=== PATIENT | female | born 1935 | race Caucasian/White ===

== ENCOUNTER → 2017-09-09 | Outpatient (CLI) | payer OTHER ==
[~2017-09-09] MED LIST: FURO40TA PO; GARL3CAP PO; KLOR8TAB PO; POTA10TA2 PO
== END ==
LOC: CPRE 08:22
PROVIDERS: ATTEND Surgery
DX: Z01.812 Encounter for preprocedural laboratory examination (principal)

== ENCOUNTER 2017-09-10 05:31 | Inpatient (IN) | payer OTHER, MEDICARE ==
[~2017-09-10] VITALS: Ht 152.4 cm; Wt 70.9 kg
[~2017-09-10 05:31] MED LIST changes: -POTA10TA2 PO
[2017-09-10] MEDS ORDERED: CHLORHEXIDINE GLUCONATE 2 % 1 PACK (2 CLOTHS) TOPICAL PRN (06:15)
[2017-09-10] MEDS ORDERED: METOPROLOL TARTRATE 25 MG TAB PO PRN (06:15)
[2017-09-10] MEDS ORDERED: VANCOMYCIN 1000 MG/NS 250 ML (for <70 kg) IV SCH ×2 (06:15)
[2017-09-10] MEDS ORDERED: SODIUM CHLORID 0.9% 500 ML IV PRN (06:15)
[2017-09-10] MEDS ORDERED: POVIDONE IODINE 5% (ANTISEPSIS KIT) 4 APPLICATIONS EACH NARE PRN (06:15)
[2017-09-10] MEDS ORDERED: CHLORHEXIDINE GLUCONATE 4% SOLN 120 ML BTL TOPICAL SCH (06:15)
[2017-09-10] MEDS ORDERED: LACTATED RINGER'S 1000 ML IV PRN (06:15)
[2017-09-10] MEDS ORDERED: CLINDAMYCIN 900 MG/NS 100 ML IV SCH ×2 (06:15)
[2017-09-10] MEDS ORDERED: SODIUM CHLORIDE 0.9% INJ 100 ML ONE (06:37)
--- NOTE | 2017-09-10 07:14 | MH ---
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 ADMISSION HISTORY AND PHYSICAL This pleasant 82-year female is being admitted today for reverse shoulder arthroplasty due to severe arthritic degeneration with rotator cuff incompetence right shoulder. OTHER PAST HISTORY She has a history of: 1. Hypertension 2. Heart disease CURRENT MEDICATIONS Her current medications include: 1. Lisinopril 2. Lasix PAST SURGERIES 1. Cholecystectomy 2. Bilateral total knee arthroplasties REVIEW OF SYSTEMS Noncontributory FAMILY HISTORY Noncontributory SOCIAL HISTORY She does not smoke or drink. ALLERGIES SHE IS ALLERGIC TO KEFLEX. PHYSICAL EXAMINATION We find an 82-year female well-developed, well-nourished oriented x3 complaining of pain in her right shoulder. VITAL SIGNS: Blood pressure 134/82, pulse 69 and regular, respirations 18, temperature 97.7, pulse oximetry 97% on room air. HEENT: Eyes PERRL, EOMI. Ears, nose, mouth clear. NECK: Supple. LUNGS: Clear. HEART: Regular rate. ABDOMEN: Soft. Positive bowel sounds, nontender. EXTREMITIES: Reveal the right shoulder to have some limitation of motion. Neurovascularly intact to her fingers. 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 PLAN Admission for a reverse right shoulder arthroplasty today. The patient given a prescription for postoperative pain control in the office and plans on going home after surgical stay in the hospital. MD MATTIE Abernathy/JONAH /1:15 PM /7:07 AM
[2017-09-10] MEDS ORDERED: THROMBIN (TOPICAL) 20,000 UNIT SPRAY KIT ONE (07:18)
[2017-09-10] MEDS ORDERED: ROPIVACAINE 0.5% PF INJ 30 ML VIAL ONE (07:39)
[2017-09-10] MEDS: LACTATED RINGER'S 1000 ML INJ 1,000 ML IV SCH ×2 (07:57→20:27)
[2017-09-10] MEDS ORDERED: BISACODYL 10 MG SUPP RECTAL PRN (08:00)
[2017-09-10] MEDS ORDERED: EXPAREL PERI-ARTICULAR INJECTION (TOTAL VOL. 60 ML) P-ARTICULR SCH ×2 (08:00)
[2017-09-10] MEDS ORDERED: TEMAZEPAM 15 MG CAP PO PRN (08:00)
[2017-09-10] MEDS ORDERED: TRANEXAMIC ACID INJ 0 MG in SODIUM CHLORIDE 0.9% INJ 100 ML IV SCH (08:00)
[2017-09-10] MEDS ORDERED: TRANEXAMIC ACID IV SCH ×2 (08:00→11:00)
[2017-09-10] MEDS ORDERED: MAGNESIUM HYDROXIDE SUSP 30 ML CUP PO PRN (08:00)
[2017-09-10] MEDS ORDERED: Post-op Orders (for Pharmacy) XX ONE (08:00)
[2017-09-10] MEDS ORDERED: NALOXONE HCL 0.4 MG/ML AMP IV PUSH PRN (08:00)
[2017-09-10] MEDS ORDERED: MORPHINE SULFATE 8 MG/ML INJ IV PUSH PRN (08:00)
[2017-09-10] MEDS ORDERED: ONDANSETRON HCL 4 MG/2 ML VIAL IVP PRN (08:00)
[2017-09-10] MEDS ORDERED: SODIUM CHLORIDE 0.9% IV SCH ×2 (08:00→11:00)
[2017-09-10] MEDS ORDERED: MISCELLANEOUS NURSING INFORMATION XX PRN (08:00)
[2017-09-10] MEDS ORDERED: oxyCODONE/ACETAMINOPHEN 5 MG/325 MG TAB PO PRN ×2 (08:00)
--- NOTE | 2017-09-10 08:01 | HHI.FF ---
Face to Face Verification Diagnosis: (1) Status post reverse arthroplasty of right shoulder Occupational Therapy Right UE Range of Motion: Passive ROM Nursing RN: 3 days/week x 2 weeks Nursing: Dressing changes I have seen patient Zelda Vyas on 09/10/17. My clinical findings support the need for the requested home health care services because: Limited ability to care for self High risk of falls I certify that my clinical findings support that this patient is homebound because: Post-op weakness Unsteady gait/balance Christian Hoffman MD Sep 10, 2017 08:01
[2017-09-10] MEDS ORDERED: GENTAMICIN SULFATE 80 MG/2 ML VIAL ONE (08:20)
[2017-09-10] MEDS ORDERED: PHENYLEPHRINE HCL 10 MG/ML VIAL IV ONE (12:00)
[2017-09-10] MEDS ORDERED: NEOSTIGMINE 5 MG/5 ML SYRINGE IV PUSH ONE (12:00)
[2017-09-10] MEDS ORDERED: ONDANSETRON HCL 4 MG/2 ML VIAL IV ONE (12:00)
[2017-09-10] MEDS ORDERED: LIDOCAINE HCL 1% PF 5 ML SYRINGE OTHER ONE (12:00)
[2017-09-10] MEDS ORDERED: PROPOFOL 200 MG/20 ML AMP IV ONE (12:00)
[2017-09-10] MEDS ORDERED: ePHEDrine/NS 25 MG/5 ML SYRINGE IV ONE (12:00)
[2017-09-10] MEDS ORDERED: DEXAMETHASONE SOD PHOS 4 MG/ML VIAL IV ONE (12:00)
[2017-09-10] MEDS ORDERED: PHENYLEPH/NS 1000 MCG/10 ML SYR IV ONE (12:00)
[2017-09-10] MEDS ORDERED: ROCURONIUM INJ 50 MG/5 ML SYRINGE IV PUSH ONE (12:00)
[2017-09-10] MEDS ORDERED: GLYCOPYRROLATE 1 MG/5 ML SYRINGE IV PUSH ONE (12:00)
--- NOTE | 2017-09-10 12:24 | HHI.PR ---
Immediate Post Op Note Procedure Date: Sep 10, 2017 Pre Op Diagnosis: severe arthritic degeneration with rotator cuff incompetence right shoulder. Post Op Diagnosis: severe arthritic degeneration with rotator cuff incompetence right shoulder. Surgeon: Tony Hoffman MD Elevating Grader Operator(s): Jyoti SHINE Procedure: Right Reverse Total Shoulder Arthroplasty Complications: none Specimen(s) removed: none Estimated blood loss: 300cc Anesthesia: General Drains: None IVF Urinary Output (mLs): 0 (no cazares placed) Tourniquet time (min at mmHg) none Patient to: PACU Patient Condition: Good Implant/Devices: SEE IMPLANT LOG (if applicable) Date/Time of Procedure: SEE SURGICAL CARE RECORD Jyoti Magaña Sep 10, 2017 12:24
[2017-09-10 12:51] LABS: HEMATOCRIT 32.3 % (35.0-46.0); HEMOGLOBIN 10.7 GM/DL (11.6-15.3)
[2017-09-10] MEDS ORDERED: NS IV SCH (13:00)
[2017-09-10] MEDS ORDERED: CLINDAMYCIN IV SCH (13:00)
[2017-09-10] MEDS: POTASSIUM CHLORIDE 8 MEQ CONTROLLED RELEASE TAB PO SCH (14:05)
[2017-09-10] MEDS: FUROSEMIDE 40 MG TAB PO SCH (14:05)
--- NOTE | 2017-09-10 14:15 | RADRPT ---
EXAM DATE/TIME: 09/10/2017 13:53 [facility] COMPARISON: No previous studies available for comparison. INDICATIONS : Post op left shoulder surgery. MEDICAL HISTORY : Hypertension. TIA. Arthritis. SURGICAL HISTORY : Cholecystectomy. ENCOUNTER: Initial ACUITY: 1 day PAIN SCORE: 3/10 LOCATION: Left shoulder. FINDINGS: AP and Y. views of the left shoulder were obtained and demonstrate that the patient is status post le ft shoulder arthroplasty. The humeral and glenoid components are intact. There is mild osteopenia. Th ere is soft tissue swelling and gas in the adjacent soft tissues. CONCLUSION: Expected postoperative changes status post left shoulder arthroplasty. Alexey Murphy MD on September 10, 2017 at 14:11 Board Certified Radiologist. This report was verified electronically.
[2017-09-10] MEDS ORDERED: DO NOT ADM ANY ANTICOAGULANT DRUGS PRN (15:15)
[2017-09-10] MEDS: CLINDAMYCIN 600 MG/NS PREMIX 50 ML IV SCH ×2 (15:50→19:49)
[2017-09-10 16:00] VITALS: BP 101/75; PULSE 108; RESP 17; TEMP 96; O2SAT 94
--- NOTE | 2017-09-10 17:07 | PD.CONS ---
[facility] By Dr. Hoffman Reason for Consult Medical management Primary Care Physician Smiley Kennedy MD Diagnoses: History of Present Illness The patient is an 82-year-old female with a past medical history of hypertension and arthritis who is presenting to the hospital for an elective right rotator cuff repair. The patient said that a few months ago she must have torn her rotator cuff as she has been having issues with her right rotator cuff. She said that every once in a while she would get pain up to 8 out of 10 in severity. She is unsure of what caused the pain to come and go. She said that she tried working with physical therapy and did some exercises at home. She said that she was taking Tylenol PM at night to help her rest. She says she has been relying on her left upper extremity to perform daily tasks. She said she followed with her orthopedic surgeon and finally decided that surgery would be favorable. She tolerated the procedure well and did not complain of pain at the time of examination. Review of Systems Except as stated in HPI: all other systems reviewed are Neg Past Family Social History Allergies: Coded Allergies: cefazolin (Verified Allergy, Severe, 09/10/17) cephalexin (Verified Allergy, Severe, COULD NOT OPEN EYES, 09/10/17) etodolac (Unverified Allergy, Severe, PT DOES NOT RECALL BEING ALLERGIC TO THIS, 09/10/17) SULINDAC - ITCHING flurbiprofen (Unverified Allergy, Severe, PT DOES NOT RECALL BEING ALLERGIC TO THIS, 09/10/17) SULINDAC - ITCHING indomethacin (Unverified Allergy, Severe, PT DOES NOT RECALL BEING ALLERGIC TO THIS, 09/10/17) SULINDAC - ITCHING ketoprofen (Unverified Allergy, Severe, PT DOES NOT RECALL BEING ALLERGIC TO THIS, 09/10/17) SULINDAC - ITCHING oxaprozin (Unverified Allergy, Severe, PT DOES NOT RECALL BEING ALLERGIC TO THIS, 09/10/17) SULINDAC - ITCHING risedronate sodium (Unverified Allergy, Severe, RASH, 09/10/17) Uncoded Allergies: SULINDAC (Allergy, Unknown, PT DOES NOT RECALL BEING ALLERGIC TO, 09/07/09) Past Medical History Osteoarthritis Hypertension Lower extremity edema Vertebral infection Past Surgical History Bilateral knee surgery Right hip surgery Cholecystectomy Bunionectomy Cataract surgery Active Ordered Medications Current Medications Medications (Trade) Dose Ordered Sig/Daisy Route Start Time Stop Time Status Last Admin (Hibiclens 4% Top Soln) 1 applic ONCE TOPICAL 09/10/17 06:15 09/13/17 06:14 09/10/17 06:10 Vancomycin HCl 1000 mg/Sodium Chloride 250 ml @ 250 mls/hr MAMMOGRAPHY SUPERVISOR IV 09/10/17 06:15 09/13/17 06:14 09/10/17 07:55 Clindamycin Phosphate 900 mg/ Sodium Chloride 106 ml @ 212 mls/hr MAMMOGRAPHY SUPERVISOR IV 09/10/17 06:15 09/10/17 07:29 Lactated Ringer's 1,000 ml @ 30 mls/hr Q24H PRN IV 09/10/17 06:15 09/13/17 06:14 09/10/17 06:30 Sodium Chloride 500 ml @ 30 mls/hr [id number] PRN IV 09/10/17 06:15 09/13/17 06:14 (Lopressor) 25 mg MAMMOGRAPHY SUPERVISOR PRN PO 09/10/17 06:15 09/13/17 06:14 (Betadine 5% Antisepsis Kit) 1 applic MAMMOGRAPHY SUPERVISOR PRN EACH NARE 09/10/17 06:15 09/13/17 06:14 09/10/17 06:51 (Chlorhexidine 2% Cloth) 3 pack MAMMOGRAPHY SUPERVISOR PRN TOPICAL 09/10/17 06:15 09/13/17 06:14 09/10/17 06:10 (Lasix) 40 mg DAILY PO 09/10/17 09:00 09/10/17 14:05 (KCl) 8 meq DAILY PO 09/10/17 09:00 09/10/17 14:05 Lactated Ringer's 1,000 ml @ 80 mls/hr [id number] IV 09/10/17 07:57 Miscellaneous Information UNSCH PRN XX 09/10/17 08:00 (Morphine Inj) 5 mg Q3H PRN IV PUSH 09/10/17 08:00 (Percocet 5-325 Mg) 1 tab Q4H PRN PO 09/10/17 08:00 (Percocet 5-325 Mg) 2 tab Q4H PRN PO 09/10/17 08:00 (Tylenol) 650 mg Q6H PRN PO 09/10/17 08:00 (Zofran Inj) 4 mg Q6H PRN IVP 09/10/17 08:00 (Colace) 100 mg BID PO 09/11/17 21:00 (Restoril) 15 mg HS PRN PO 09/10/17 08:00 (Dulcolax Supp) 10 mg DAILY PRN RECTAL 09/10/17 08:00 (Milk Of Magnesia Liq) 30 ml DAILY PRN PO 09/10/17 08:00 (Bacitracin Oint Packet) 0.9 gm UNSCH X1 PRN TOP 09/12/17 11:15 09/14/17 11:14 (Narcan Inj) 0.4 mg UNSCH PRN IV PUSH 09/10/17 08:00 Clindamycin/ Sodium Chloride 50 ml @ 200 mls/hr Q6H IV 09/10/17 13:00 09/11/17 07:14 09/10/17 15:50 Miscellaneous Information ALL NURSING DEPARTME... UNSCH PRN .XX 09/10/17 15:15 09/11/17 15:14 Family History No pertinent family history Social History The patient quit smoking 30 years ago. She has occasional alcohol use. Physical Exam Vital Signs Vital Signs Date Time Temp Pulse Resp B/P (MAP) Pulse Ox O2 Delivery O2 Flow Rate FiO2 09/10/17 16:00 96.0 108 17 101/75 (84) 94 09/10/17 12:55 62 14 118/68 (85) 96 Room Air 09/10/17 12:45 65 14 125/67 (86) 95 Room Air 09/10/17 12:30 75 14 121/74 (90) 96 Nasal Cannula 2 09/10/17 12:19 97.9 90 14 122/71 (88) 96 Nasal Cannula 2 09/10/17 06:39 98.3 76 20 138/79 (98) 94 Physical Exam GENERAL: This is a well-nourished, well-developed patient, in no apparent distress. SKIN: No rashes, ecchymoses or lesions. Cool and dry. HEAD: Atraumatic. Normocephalic. No temporal or scalp tenderness. EYES: Pupils equal round and reactive. Extraocular motions intact. No scleral icterus. No injection or drainage. ENT: Nose without bleeding, purulent drainage or septal hematoma. Throat without erythema, tonsillar hypertrophy or exudate. Uvula midline. Airway patent. NECK: Trachea midline. No JVD or lymphadenopathy. Supple, nontender, no meningeal signs. CARDIOVASCULAR: Regular rate and rhythm without murmurs, gallops, or rubs. RESPIRATORY: Clear to auscultation. Breath sounds equal bilaterally. No wheezes , rales, or rhonchi. GASTROINTESTINAL: Abdomen soft, non-tender, nondistended. No hepato-splenomegaly , or palpable masses. No guarding. MUSCULOSKELETAL: Right upper extremity is in sling. Trace to 1+ lower extremity edema. NEUROLOGICAL: Awake and alert. Cranial nerves II through XII intact. Motor and sensory grossly within normal limits. Five out of 5 muscle strength in all muscle groups. Normal speech. PSYCH: Mood and affect appropriate. Laboratory Laboratory Tests Test 09/10/17 12:43 Hemoglobin 10.7 Hematocrit 32.3 Result Diagram: 09/10/17 1243 Imaging Last Impressions Shoulder X-Ray 09/10/17 0000 Signed Impressions: Service Date/Time: September 13:53 - CONCLUSION: Expected postoperative changes status post left shoulder arthroplasty. Alexey Murphy MD Assessment and Plan Assessment and Plan Right rotator cuff tear Status post elective surgery 09/10/17. The patient tolerated the procedure well. - Pain control, dressing changes, anticoagulation and weightbearing per orthopedic surgery. - Physical therapy. - Incentive spirometry. - Bowel regimen. Anemia Related to surgery. - Follow CBC. Hypertension Blood pressure well controlled at this time. - Clonidine as needed. PPx: Per orthopedic surgery Discussed Condition With Patient, patient's family Alexey Goyal DO Sep 10, 2017 17:07
[2017-09-10] MEDS ORDERED: cloNIDine HCL 0.1 MG TAB PO PRN (17:15)
[2017-09-10] MEDS: ACETAMINOPHEN 325 MG TAB PO PRN (20:39)
[2017-09-10 20:50] VITALS: BP 110/71; PULSE 106; RESP 19; TEMP 97.9; O2SAT 94
[2017-09-11] MEDS: CLINDAMYCIN 600 MG/NS PREMIX 50 ML IV SCH ×2 (00:26→05:37)
[2017-09-11 00:30] VITALS: BP 108/60; PULSE 93; RESP 18; TEMP 99.6; O2SAT 94
[2017-09-11 04:30] VITALS: BP 107/64; PULSE 86; RESP 18; TEMP 98.6; O2SAT 95
[2017-09-11 05:51] LABS: HEMATOCRIT 25.8 % (35.0-46.0); MEAN CELL VOLUME 85.6 FL (80.0-100.0); MEAN CORPUSCULAR HEMOGLOBIN 29.7 PG (27.0-34.0); MEAN CORPUSCULAR HGB CONC 34.7 % (32.0-36.0); MEAN PLATELET VOLUME 8.3 FL (7.0-11.0); PLATELET COUNT 141 TH/MM3 (150-450); RED BLOOD COUNT 3.02 MIL/MM3 (4.00-5.30); RED CELL DISTRIBUTION WIDTH 14.7 % (11.6-17.2); WHITE BLOOD COUNT 5.3 TH/MM3 (4.0-11.0)
[2017-09-11 06:14] LABS: BICARBONATE 27.5 MEQ/L (21.0-32.0); CALCIUM 8.7 MG/DL (8.5-10.1); CREATININE 1.05 MG/DL (0.50-1.00)
[2017-09-11 08:00] VITALS: BP 117/71; PULSE 76; RESP 17; TEMP 98.6; O2SAT 96
[2017-09-11] MEDS: ACETAMINOPHEN 325 MG TAB PO PRN (08:09)
[2017-09-11] MEDS: LACTATED RINGER'S 1000 ML INJ 1,000 ML IV SCH (08:16)
[2017-09-11] MEDS: FUROSEMIDE 40 MG TAB PO SCH (08:16)
[2017-09-11] MEDS: POTASSIUM CHLORIDE 8 MEQ CONTROLLED RELEASE TAB PO SCH (08:16)
--- NOTE | 2017-09-11 09:20 | PD.ORT.PN ---
Subjective Subjective Remarks Patient fairly comfortable today. No complaints. Objective Vitals Vital Signs Date Time Temp Pulse Resp B/P (MAP) Pulse Ox O2 Delivery O2 Flow Rate FiO2 09/11/17 08:00 98.6 76 17 117/71 (86) 96 09/11/17 04:30 98.6 86 18 107/64 (78) 95 09/11/17 00:30 99.6 93 18 108/60 (76) 94 09/10/17 20:50 97.9 106 19 110/71 (84) 94 09/10/17 16:00 96.0 108 17 101/75 (84) 94 09/10/17 12:55 62 14 118/68 (85) 96 Room Air 09/10/17 12:45 65 14 125/67 (86) 95 Room Air 09/10/17 12:30 75 14 121/74 (90) 96 Nasal Cannula 2 09/10/17 12:19 97.9 90 14 122/71 (88) 96 Nasal Cannula 2 I/O 09/10/17 09/10/17 09/10/17 09/11/17 09/11/17 09/11/17 07:00 15:00 23:00 07:00 15:00 23:00 Intake Total 1000 ml 530 ml 240 ml Output Total 300 ml Balance 700 ml 530 ml 240 ml Intake Oral 480 ml 240 ml IV Total 50 ml Other 1000 ml Output Estimated Blood Loss 300 ml # Voids 2 3 # Bowel Movements 0 0 Result Diagram: 09/11/17 0513 09/11/17 0513 Imaging Last 48 hours Impressions Shoulder X-Ray 09/10/17 0000 Signed Impressions: Service Date/Time: September 13:53 - CONCLUSION: Expected postoperative changes status post left shoulder arthroplasty. Alexey Murphy MD Objective Remarks wound clean and dry. Dressing intact. NV intact to fingers. Assessment & Plan Ortho Post Op Day #: 1 Problem List: Assessment and Plan Home later today with HHC and OT. To office next week. Christian Hoffman MD Sep 11, 2017 09:19
--- NOTE | 2017-09-11 09:24 | HHI.DS ---
Discharge Summary Admission Date Sep 10, 2017 at 05:31 Discharge Date: Sep 11, 2017 Admitting Diagnosis Osteoarthritic degeneration right shoulder. Diagnosis: (1) Status post reverse arthroplasty of right shoulder Diagnosis: Principal ICD Codes: Z96.611 - Presence of right artificial shoulder joint Brief History This is a 82 year old female patient CBC/BMP: 09/11/17 0513 09/11/17 0513 Significant Findings Laboratory Tests Test 09/10/17 12:43 09/11/17 05:13 Hemoglobin 10.7 GM/DL (11.6-15.3) 9.0 GM/DL (11.6-15.3) Hematocrit 32.3 % (35.0-46.0) 25.8 % (35.0-46.0) Red Blood Count 3.02 MIL/MM3 (4.00-5.30) Platelet Count 141 TH/MM3 (150-450) Blood Urea Nitrogen 27 MG/DL (7-18) Creatinine 1.05 MG/DL (0.50-1.00) Estimat Glomerular Filtration Rate 50 ML/MIN (>89) PE at Discharge wound clean and dry. Dressing intact. NV intact to fingers. Hospital Course This patient underwent a reverse right total shoulder arthroplasty on day of admission. She received a course of prophylactic IV antibiotics and began out of bed tolerating food and fluids well on by mouth pain meds. She continued to improve with some physical therapy. The wound remained clean and dry with sterile dressing and she was neurovascularly intact. She was discharged on postoperative day #1 in good condition with instructions for home healthcare and occupational therapy. She has by mouth pain meds at home and an appointment for follow-up in the office the following week. Pt Condition on Discharge: Good Discharge Disposition: Disch w/ Home Health Serv Discharge Instructions Diet Instructions: As Tolerated, No Restrictions Activities You Can Perform: Shower Only-No Bath Activities to Avoid: Lifting/Bending, Bathing, Driving Christian Hoffman MD Sep 11, 2017 09:23
[2017-09-11 12:00] VITALS: BP 109/74; PULSE 100; RESP 17; TEMP 98.2; O2SAT 97
--- NOTE | 2017-09-11 12:41 | MP ---
cc: Christian HOFFMAN M.D. DATE OF SURGERY 09/10/2017 PREOPERATIVE DIAGNOSIS Osteoarthritic degeneration with rotator cuff incompetence right shoulder. POSTOPERATIVE DIAGNOSIS Osteoarthritic degeneration with rotator cuff incompetence right shoulder. SURGERY PERFORMED Reverse right shoulder arthroplasty using the JL surgical components. SURGEON Dr. Hoffman GAMEPLAY ENGINEER RL Hernandes ANESTHESIA General intubation and block PROCEDURE The patient brought to the operating room where after successful induction of general anesthesia, the patient's right shoulder and arm were prepped and draped in the usual manner and placed in a beach chair position. Anterior incision was then made extending from the mid clavicle across the coracoid, down toward the humerus, 9 inches in length carried down to subcutaneous tissue staying lateral to the cephalic vein which was identified. The incision carried down through the deltoid muscles splitting incision to the bursa over the rotator cuff which was quite swollen and once was entered, serous fluid was removed and rotator cuff found to be nonexistent as far as the supraspinatus and infraspinatus. The biceps tendon was also not present. Once we carried it down through the bicipital groove, the subscapularis was found to be intact and taken off at its insertion into the lesser tuberosity and tagged with #2 FiberWire for later reapproximation. After the subscapularis was reflected medially, the glenohumeral joint was identified and freed of all soft tissue protecting the axillary nerve and the musculocutaneous nerve areas throughout the procedure. By external rotation and putting a retractor behind the head of the humerus, they humerus was dislocated and the appropriate cut made using a jig for room later insertion of the humeral prosthesis. Next, the retractors were used to visualize the glenoid which was debrided posterior and superiorly staying away from the axillary nerve area and this was using a drill guide, a centering drill hole was made followed by drilling and inserting the drill guide through the four screw holes. Part of the posterior wall had been fractured and this was debrided. After the drill holes were made and the reaming guide inserted to smooth out the glenoid, the actual glenoid was inserted into place using four screws, two 22's, a 30 and 18 locking screws for the RSP baseplate. After the glenoid was finished, the humerus was then broached to a size 10 and trials inserted found to track best with a size 10 out of a stem, a 32+4 poly and a 32+4 head. After this was reduced, a full range of motion of the shoulder was appreciated with no instability and no evidence of subluxation or dislocation. The actual trials were then removed and the wound irrigated copiously with antibiotic solution. Meticulous hemostasis achieved and the actual components impacted into place and the shoulder injury to reduced, found to track fully with no evidence of subluxation or dislocation. There was good stability noted. The wound again irrigated copiously with antibiotic solution and again meticulous hemostasis achieved. 60 cc of Exparel used along the outside areas of the shoulder joint for better pain control postop. The deep fascia approximated with running #2 quill after drill holes had been made for reapproximation of the subscapularis which was then tightened back into the bone. #0 Vicryl was used for repair of the deltoid followed by subcutaneous tissue approximation with 2-0 and 3-0 Monocryl suture, both interrupted and running and Primapore dressing, sling and swath. No drain utilized. Estimated blood loss 300 cc. Sponge and suture counts were correct. The patient tolerated the procedure and left the operating room in satisfactory condition and RL Hernandes was present during the entire procedure to include patient positioning and the procedure. The medical necessity of the nurse practitioner as a judicial assistant was indicated in this case due to the surgical complexity of the case itself and during the surgical case, the surgical garment assembly supervisor was working the back table while my surgical clinical reviewer RL was directly assisting me. MD MATTIE Abernathy/JONAH /11:54 AM /12:10 PM
[2017-09-11 16:00] VITALS: BP 116/68; PULSE 92; RESP 18; TEMP 98; O2SAT 94
[2017-09-11] MEDS ORDERED: DOCUSATE SODIUM 100 MG CAP PO SCH (21:00)
[2017-09-12] MEDS ORDERED: BACITRACIN OINT 0.9 GM PKT TOP PRN (11:15)
== END 2017-09-11 17:46 | disposition home health service (06) | DRG 483 ==
LOC: HSDI 05:31 → N06B 13:29
PROVIDERS: ADMIT Surgery; ATTEND Surgery
PROC: 0RRJ00Z Replacement of Right Shoulder Joint with Reverse Ball and Socket Synthetic Substitute, Open Approach (ICD-10-PCS; principal; 2017-09-10 07:54)
DX: M19.011 Primary osteoarthritis, right shoulder (principal); I11.0 Hypertensive heart disease with heart failure; D64.9 Anemia, unspecified; I50.9 Heart failure, unspecified; M75.101 Unspecified rotator cuff tear or rupture of right shoulder, not specified as traumatic; Z96.653 Presence of artificial knee joint, bilateral; Z88.1 Allergy status to other antibiotic agents; Z87.891 Personal history of nicotine dependence
CPT/HCPCS: 73030; 80048; 83735; 85014; 85018; 85027; 94150; C1776; C9290; J1100; J1580; J2370; J2405; J2710; J2795; J3010; J3370; J7050; J7120